=== PATIENT | male | born 1965 | race Caucasian/White ===

== ENCOUNTER 2020-12-21 08:44 | Outpatient (REF) | payer MEDICARE, SELFPAY ==
--- NOTE | ~2020-12-21 | MR_ITS ---
EXAMINATION: MR BRAIN WITHOUT AND WITH CONTRAST CLINICAL INFORMATION: 55-year-old with MS COMPARISON: 04/22/2019 MRI TECHNIQUE: Multiplanar, multisequence MRI of the brain was obtained before and after the intravenous administration of 6 mL Gadavist. FINDINGS: DWI imaging demonstrates no restricted diffusion. No abnormal intracranial enhancement, mass lesion, space-occupying process or mass effect. Small poorly marginated FLAIR signal hyperintensities are seen in the juxtaventricular white matter of both cerebral hemispheres, stable in appearance from previous study, with a stable small subcortical T2 hyperintensity near the left frontal convexity and mild patchy T2 hyperintensity along the inferior frontal horns which may reflect CSF capping. Minimal of faint, confluent T2 hyperintensity noted in the deep parieto-occipital white matter bilaterally is stable. A small T2 hyperintense focus on the left side of the genu of the corpus callosum is stable and there is diffuse corpus callosal volume loss with increased T2 signal at the anterior callosal septal interface, stable in appearance. Multiple tiny FLAIR signal hyperintensities in the body of corpus callosum on the left are stable. The ventricular system and subarachnoid spaces are consistent with moderate generalized diffuse brain parenchymal volume loss, stable in appearance, without hydrocephalus, with a cavum septum pellucidum and cavum vergae incidentally noted, unchanged in appearance. Gradient echo imaging demonstrates no evidence for hemorrhage or hemosiderin staining. Normal signal voids are noted in the visualized major intracranial vessels. The visualized orbital structures appear grossly unremarkable within the limitations of the study.. The paranasal sinuses are well aerated. MR/MR head/brain wo/w con IMPRESSION: 1. No significant change in previously noted supratentorial white matter lesions with no evidence for active demyelination/abnormal enhancement. 2. Generalized diffuse brain parenchymal volume loss and diffuse corpus callosal volume loss, stable in appearance, without hydrocephalus.
--- NOTE | ~2020-12-21 | MR_ITS ---
EXAMINATION: MR CERVICAL SPINE WITHOUT AND WITH CONTRAST CLINICAL INFORMATION: 55-year-old with MS. Follow-up study. COMPARISON: 06/09/2019 TECHNIQUE: MRI of the cervical spine was obtained using routine sequences with and without contrast. Intravenous contrast: Gadavist 6 mL. FINDINGS: Alignment: Normal. No change. Craniocervical Junction/C1-C2 Articulations:?Intact and aligned. Visualized Intracranial Structures: Within normal limits. Vertebral Bodies: Normal height. Bone Marrow: Within normal limits. Spinal Cord: Previously noted lesion in the dorsal aspect of the spinal cord at the C4-C5 level is again noted with no abnormal enhancement, largely stable in appearance from previous exam. There is subtle spinal cord volume loss at this level, unchanged. A tiny lesion in the dorsal aspect of the spinal cord without abnormal enhancement is noted at the level of the superior endplate of C4, unchanged. No new lesions are identified in the spinal cord, with the remainder of the cervical and visualized upper thoracic spinal cord demonstrated normal signal intensity with no abnormal enhancement. C2-C3: Disc space height is well maintained without disc herniation or spondylosis. There is minor facet arthrosis on the left, stable in appearance. C3-C4: Disc space height is well maintained. Small left paramedian disc protrusion, stable in appearance, without spinal stenosis or cord impingement. Mild uncinate process spurring on the right is stable with mild right-sided neural foraminal stenosis, unchanged. C4-C5: Disc space height is well maintained. There is uncovertebral spurring again noted, right more the left, with moderate right-sided neural foraminal stenosis, stable in appearance. C5-C6: Disc space height is well maintained. Small central to left paramedian disc protrusion noted without spinal cord impingement, stable in appearance. Uncovertebral joint arthrosis again noted bilaterally with mild facet arthrosis on the left, stable in appearance, and mild ligamentum flavum thickening, unchanged. There is mild left-sided and [id number] right-sided neural foraminal stenosis, stable in appearance. Mild central canal narrowing asymmetric to the left is stable. C6-C7: Disc space height is well maintained. Mild broad-based central disc protrusion with mild flattening of the dural sac without cord impingement is stable with no significant spinal canal stenosis. There is mild facet spurring bilaterally and uncovertebral spurring with mild foraminal narrowing bilaterally, stable in appearance. C7-T1: Disc space height is well maintained, stable in appearance, without disc herniation. Mwce-az-qeyuylek facet arthrosis is noted, left more than right, unchanged in appearance, with mild left-sided neural foraminal stenosis, unchanged. The visualized paravertebral soft tissues are within normal limits. MR/MR cervical spine wo/w con IMPRESSION: 1. Stable dorsal spinal cord lesions at the C4-C5 level as described above with no definite abnormal enhancement, unchanged in appearance. Mild degree of focal spinal cord volume loss at this level is stable. 2. No definite new lesions are identified. 3. Stable multilevel disc protrusions, uncovertebral and facet arthrosis with predominately [id number] degrees of multilevel neural foraminal compromise, largely unchanged.
== END 2020-12-21 08:45 | disposition home or self-care (01) ==
LOC: HO.MRI 08:44
PROVIDERS: PCP Internal Medicine; Visit Provider Psychiatry & Neurology Neurology
DX: G35 Multiple sclerosis (principal)
CPT/HCPCS: 70553; 72156; A9585

== ENCOUNTER 2021-07-04 15:24 | Outpatient (REF) | payer MEDICARE, SELFPAY ==
[2021-07-04 16:51] LABS: MANUAL DIFF FLAG NO
[2021-07-04 16:54] LABS: Basophils Percent Auto 0.3 % (0-2); Eosinophils Absolute Auto 0.1 X10*3/uL (0.0-0.4); Eosinophils Percent Auto 0.9 % (0-4); Hematocrit 40.8 % (42-52); Hemoglobin 13.7 g/dl (14.0-18.0); Imm Gran Abs Auto 0.09 X10*3/uL (0.00-0.03); Imm Gran Pct Auto 0.8 % (0.0-0.4); Lymphocytes Absolute Auto 2.2 X10*3/uL (1.2-4.9); Lymphocytes Percent Auto 18.4 % (20-40); Mean Corpuscular HGB Conc 33.6 g/dl (31.0-36.0); Mean Corpuscular Hemoglobin 29.5 pg (27.0-33.0); Mean Corpuscular Volume 87.9 fL (80-98); Mean Platelet Volume 9.1 fL (9.4-12.4); Monocytes Absolute Auto 0.7 X10*3/uL (0.1-1.2); Monocytes Percent Auto 6.2 % (2-11); NRBC Pct Auto 0.3 /100WBC (0.0-0.2); Neutrophils Absolute Auto 8.8 X10*3/uL (2.0-8.3); Neutrophils Percent Auto 73.4 % (45-73); Platelet Count 211 X10*3/uL (160-400); Red Blood Count 4.64 X10*6/uL (4.60-5.80); Red Cell Distribution Width 13.2 % (11.0-16.0)
[2021-07-04 17:17] LABS: Alanine Aminotransferase 23 U/L (0-40); Albumin Level 4.5 g/dL (3.5-5.0); Alkaline Phosphatase 87 U/L (39-117); Aspartate Amino Transferase 16 U/L (5-37); Bilirubin Direct < 0.2 mg/dL (0.0-0.5); Bilirubin Total 0.6 mg/dL (0.0-1.0); Total Protein 6.9 g/dL (6.5-8.0)
[2021-07-11 19:56] LABS: JCV Antibody POSITIVE; JCV Index Value 1.53
== END 2021-07-04 15:25 | disposition home or self-care (01) ==
LOC: HO.LAB 15:24
PROVIDERS: PCP Internal Medicine; Visit Provider Psychiatry & Neurology Neurology
DX: G35 Multiple sclerosis (principal)
CPT/HCPCS: 36415; 80076; 85025; 86711

== ENCOUNTER 2022-01-29 10:57 | Outpatient (REF) | payer OTHER, SELFPAY ==
[2022-01-29 11:09] LABS: MANUAL DIFF FLAG NO
[2022-01-29 11:49] LABS: Basophils Absolute Auto 0.1 X10*3/uL (0.0-0.2); Basophils Percent Auto 0.6 % (0-2); Eosinophils Absolute Auto 0.4 X10*3/uL (0.0-0.4); Eosinophils Percent Auto 3.1 % (0-4); Hematocrit 46.1 % (42.0-52.0); Hemoglobin 15.3 g/dl (14.0-18.0); Imm Gran Pct Auto 0.9 % (0.0-0.4); Lymphocytes Absolute Auto 3.5 X10*3/uL (1.2-4.9); Lymphocytes Percent Auto 31.4 % (20-40); Mean Corpuscular HGB Conc 33.2 g/dl (31.0-36.0); Mean Corpuscular Hemoglobin 28.9 pg (27.0-33.0); Mean Platelet Volume 8.9 fL (9.4-12.4); Monocytes Absolute Auto 0.9 X10*3/uL (0.1-1.2); Monocytes Percent Auto 8.3 % (2-11); NRBC Pct Auto 0.6 /100WBC (0.0-0.2); Neutrophils Absolute Auto 6.2 x10*3/uL (2.0-8.3); Neutrophils Percent Auto 55.7 % (45-73); Platelet Count 275 X10*3/uL (160-400); Red Cell Distribution Width 14.8 % (11.0-16.0); White Blood Count 11.2 X10*3/uL (4.8-10.8)
[2022-02-06 01:47] LABS: JCV Antibody POSITIVE; JCV Index Value 1.39
== END 2022-01-29 10:58 | disposition home or self-care (01) ==
LOC: HO.LAB 10:57
PROVIDERS: PCP Internal Medicine; Visit Provider Psychiatry & Neurology Neurology
DX: G35 Multiple sclerosis (principal)
CPT/HCPCS: 36415; 85025; 86711

== ENCOUNTER 2022-08-15 13:12 | Outpatient (REF) | payer OTHER, SELFPAY ==
--- NOTE | ~2022-08-15 | MR_ITS ---
EXAMINATION: MRI BRAIN WITHOUT AND WITH CONTRAST MRI CERVICAL SPINE WITHOUT AND WITH CONTRAST CLINICAL INFORMATION: Surveillance. History of multiple sclerosis. COMPARISON: MRI brain and cervical spine 12/21/2020. TECHNIQUE: Multiplanar MR imaging of the brain and cervical spine was performed without and with contrast. FINDINGS: Brain: There are scattered nonspecific foci of T2 FLAIR signal hyperintensity primarily involving the supratentorial white matter with a predilection for the callososeptal interface and juxtacortical white matter consistent with the patient's clinical history of multiple sclerosis. No clear evidence of new or worsening white matter disease when compared to most recent prior examination from 12/21/2020. Postcontrast images reveal no abnormal intraparenchymal enhancement. There is no intracranial mass effect or midline shift. No abnormal extra-axial collection. Lateral and third ventricles are proportionate to the subarachnoid spaces. No hydrocephalus. Midline structures including the cervicomedullary junction are normal. No acute bone marrow signal changes. There is no acute territorial infarct. No pathological magnetic susceptibility artifact. Intracranial vascular flow voids are maintained. There is a trace right mastoid tip effusion. Moderate to severe paranasal sinus disease primarily affecting the ethmoid air cells and maxillary sinuses. Globes and orbits are symmetric. Cervical spine: Patient motion degrades image quality therefore this component examination is limited. There is an intramedullary lesion involving the central to the dorsal cord at the level of C4-C5 there is better depicted on prior imaging. No clear evidence of new or worsening white matter disease. Postcontrast images reveal no abnormal intramedullary enhancement to suggest active demyelination at the time of imaging. Alignment is normal. Vertebral heights are preserved. No acute bone marrow signal changes. There is disc desiccation at multiple levels without substantial loss of intervertebral disc height. There are slightly bulging discs causing minimal indentation of the thecal sac. No canal compromise or cord compression. Uncovertebral joint spurring and conjunction with facet degenerative change causes mild right neuroforaminal encroachment at C4-C5 and mild bilateral neuroforaminal encroachment at C5-C6. Visualized soft tissues of the neck are normal. Vascular flow voids are maintained. MR/MR cervical spine wo/w con IMPRESSION: Stable chronic white matter disease involving the brain and cervical spinal cord consistent with the patient's clinical history of multiple sclerosis. No new or worsening white matter disease and no abnormal enhancement to suggest active demyelination. There is mild multilevel degenerative spondylosis of the cervical spine. No canal compromise or cord compression. Uncovertebral joint spurring and facet degenerative change causes mild right neuroforaminal encroachment at C4-C5 and mild bilateral neuroforaminal encroachment at C5-C6.
== END 2022-08-15 13:13 | disposition home or self-care (01) ==
LOC: HO.MRI 13:12
PROVIDERS: PCP Internal Medicine; Visit Provider Psychiatry & Neurology Neurology
DX: G35 Multiple sclerosis (principal)
CPT/HCPCS: 70553; 72156; A9585

== ENCOUNTER 2022-09-10 12:36 | Outpatient (REF) | payer OTHER, SELFPAY ==
[2022-09-10 12:53] LABS: MANUAL DIFF FLAG NO
[2022-09-10 13:38] LABS: Basophils Absolute Auto 0.1 X10*3/uL (0.0-0.2); Basophils Percent Auto 0.6 % (0-2); Eosinophils Absolute Auto 0.1 X10*3/uL (0.0-0.4); Eosinophils Percent Auto 0.8 % (0-4); Hematocrit 49.3 % (42.0-52.0); Hemoglobin 16.8 g/dl (14.0-18.0); Imm Gran Abs Auto 0.05 X10*3/uL (0.00-0.03); Imm Gran Pct Auto 0.5 % (0.0-0.4); Lymphocytes Absolute Auto 2.3 X10*3/uL (1.2-4.9); Lymphocytes Percent Auto 22.9 % (20-40); Mean Corpuscular HGB Conc 34.1 g/dl (31.0-36.0); Mean Corpuscular Hemoglobin 29.2 pg (27.0-33.0); Mean Corpuscular Volume 85.6 fL (80.0-98.0); Mean Platelet Volume 9.1 fL (9.4-12.4); Monocytes Absolute Auto 0.6 X10*3/uL (0.1-1.2); Monocytes Percent Auto 5.4 % (2-11); Neutrophils Absolute Auto 7.2 x10*3/uL (2.0-8.3); Neutrophils Percent Auto 69.8 % (45-73); Platelet Count 249 X10*3/uL (160-400); Red Blood Count 5.76 X10*6/uL (4.60-5.80); White Blood Count 10.2 X10*3/uL (4.8-10.8)
[2022-09-17 20:27] LABS: JCV Antibody POSITIVE; JCV Index Value 3.13
== END 2022-09-10 12:37 | disposition home or self-care (01) ==
LOC: HO.LAB 12:36
PROVIDERS: Visit Provider Psychiatry & Neurology Neurology
DX: G35 Multiple sclerosis (principal)
CPT/HCPCS: 36415; 85025; 86711

== ENCOUNTER 2023-03-11 12:12 | Outpatient (REF) | payer OTHER, SELFPAY ==
[2023-03-11 12:36] LABS: MANUAL DIFF FLAG NO
[2023-03-11 12:50] LABS: Basophils Absolute Auto 0.1 X10*3/uL (0.0-0.2); Basophils Percent Auto 0.7 % (0-2); Eosinophils Absolute Auto 0.2 X10*3/uL (0.0-0.4); Eosinophils Percent Auto 2.3 % (0-4); Hematocrit 48.1 % (42.0-52.0); Imm Gran Abs Auto 0.07 X10*3/uL (0.00-0.03); Imm Gran Pct Auto 0.7 % (0.0-0.4); Lymphocytes Absolute Auto 2.9 X10*3/uL (1.2-4.9); Lymphocytes Percent Auto 31.1 % (20-40); Mean Corpuscular HGB Conc 33.3 g/dl (31.0-36.0); Mean Corpuscular Hemoglobin 28.7 pg (27.0-33.0); Mean Corpuscular Volume 86.2 fL (80.0-98.0); Mean Platelet Volume 8.7 fL (9.4-12.4); Monocytes Absolute Auto 0.8 X10*3/uL (0.1-1.2); Monocytes Percent Auto 8.1 % (2-11); NRBC Pct Auto 0.7 /100WBC (0.0-0.2); Neutrophils Absolute Auto 5.4 x10*3/uL (2.0-8.3); Neutrophils Percent Auto 57.1 % (45-73); Platelet Count 273 X10*3/uL (160-400); Red Blood Count 5.58 X10*6/uL (4.60-5.80); Red Cell Distribution Width 13.5 % (11.0-16.0); White Blood Count 9.4 X10*3/uL (4.8-10.8)
[2023-03-11 13:21] LABS: Alanine Aminotransferase 24 U/L (0-40); Albumin Level 4.4 g/dL (3.5-5.0); Alkaline Phosphatase 112 U/L (39-117); Aspartate Amino Transferase 22 U/L (5-37); Bilirubin Direct 0.1 mg/dL (0.0-0.5); Bilirubin Total 0.3 mg/dL (0.0-1.0); Total Protein 6.8 g/dL (6.5-8.0)
[2023-03-16 00:34] LABS: JCV Antibody POSITIVE; JCV Index Value 2.84
== END 2023-03-11 12:13 | disposition home or self-care (01) ==
LOC: HO.LAB 12:12
PROVIDERS: PCP Internal Medicine; Visit Provider Psychiatry & Neurology Neurology
DX: G35 Multiple sclerosis (principal)
CPT/HCPCS: 36415; 80076; 85025; 86711

== ENCOUNTER 2023-10-11 11:06 | Outpatient (REF) | payer OTHER, SELFPAY ==
--- NOTE | ~2023-10-11 | MR_ITS ---
EXAMINATION: MR BRAIN WITH AND WITHOUT CONTRAST CLINICAL INFORMATION: MS COMPARISON: MRI brain 08/15/2022 TECHNIQUE: MRI of the brain was obtained using routine sequences before and following administration of intravenous contrast. A total of 6 mL of Gadavist was administered intravenously. FINDINGS: Stable mild burden of demyelinating disease in the supratentorial compartment. Corresponding T1 hypointense signal compatible with chronic plaques. No new lesions identified. No infratentorial lesions. No acute infarct. The GRE sequence is without susceptibility artifact to suggest acute or chronic blood products. No extra-axial fluid collection. Stable moderate global cerebral volume loss and diffuse thinning of the corpus callosum. No abnormal intraparenchymal or leptomeningeal enhancement. No significant mass effect or herniation pattern. The intracranial dural venous sinus and arterial flow voids are preserved. The orbits are grossly unremarkable. Decreased pansinus mucosal disease, which is most pronounced and moderate in the frontal sinuses with patchy involvement of the ethmoid air cells. Trace right mastoid tip effusion. Small right nasopharyngeal retention cyst. Normal marrow signal. MR/MR head/brain wo/w con IMPRESSION: 1. Stable minimal burden of demyelinating disease without new lesions identified. No enhancement to suggest active demyelination. 2. Decreased pansinus mucosal disease, which is most pronounced and moderate in the frontal sinuses with patchy involvement of the ethmoid air cells.
[2023-10-11] MEDS: gadobutroL 7.5 ML VIAL IVPUSH (12:10)
== END 2023-10-11 11:07 | disposition home or self-care (01) ==
LOC: HO.MRI 11:06
PROVIDERS: PCP Internal Medicine; Visit Provider Psychiatry & Neurology Neurology
DX: G35 Multiple sclerosis (principal)
CPT/HCPCS: 70553; A9585

== ENCOUNTER 2023-11-05 11:18 | Outpatient (REF) | payer MEDICARE, SELFPAY ==
[2023-11-05 11:36] LABS: MANUAL DIFF FLAG NO
[2023-11-05 11:40] LABS: Basophils Absolute Auto 0.1 X10*3/uL (0.0-0.2); Basophils Percent Auto 0.5 % (0-2); Eosinophils Absolute Auto 0.2 X10*3/uL (0.0-0.4); Eosinophils Percent Auto 2.2 % (0-4); Hematocrit 45.3 % (42.0-52.0); Hemoglobin 14.9 g/dl (14.0-18.0); Imm Gran Abs Auto 0.04 X10*3/uL (0.00-0.03); Imm Gran Pct Auto 0.4 % (0.0-0.4); Lymphocytes Absolute Auto 2.6 X10*3/uL (1.2-4.9); Lymphocytes Percent Auto 27.4 % (20-40); Mean Corpuscular HGB Conc 32.9 g/dl (31.0-36.0); Mean Corpuscular Hemoglobin 28.3 pg (27.0-33.0); Mean Platelet Volume 8.6 fL (9.4-12.4); Monocytes Percent Auto 10.5 % (2-11); NRBC Pct Auto 0.3 /100WBC (0.0-0.2); Neutrophils Absolute Auto 5.6 x10*3/uL (2.0-8.3); Platelet Count 217 X10*3/uL (160-400); Red Blood Count 5.27 X10*6/uL (4.60-5.80); Red Cell Distribution Width 13.8 % (11.0-16.0); White Blood Count 9.5 X10*3/uL (4.8-10.8)
[2023-11-05 13:42] LABS: Alanine Aminotransferase 22 U/L (0-40); Albumin Level 4.2 g/dL (3.5-5.0); Alkaline Phosphatase 91 U/L (39-117); Aspartate Amino Transferase 23 U/L (5-37); Bilirubin Direct 0.1 mg/dL (0.0-0.5); Bilirubin Total 0.3 mg/dL (0.0-1.0); Total Protein 6.7 g/dL (6.5-8.0)
[2023-11-14 22:58] LABS: JCV Antibody POSITIVE; JCV Index Value 2.34
== END 2023-11-05 11:19 | disposition home or self-care (01) ==
LOC: HO.LAB 11:18
PROVIDERS: PCP Internal Medicine; Visit Provider Psychiatry & Neurology Neurology
DX: G35 Multiple sclerosis (principal)
CPT/HCPCS: 36415; 80076; 85025; 86711

== ENCOUNTER 2024-05-28 12:41 | Outpatient (REF) | payer MEDICARE, SELFPAY ==
[2024-05-28 12:52] LABS: MANUAL DIFF FLAG NO
[2024-05-28 13:08] LABS: Basophils Absolute Auto 0.1 X10*3/uL (0.0-0.2); Basophils Percent Auto 0.6 % (0-2); Eosinophils Absolute Auto 0.1 X10*3/uL (0.0-0.4); Eosinophils Percent Auto 1.2 % (0-4); Hematocrit 43.7 % (42.0-52.0); Hemoglobin 14.4 g/dl (14.0-18.0); Imm Gran Abs Auto 0.06 X10*3/uL (0.00-0.03); Imm Gran Pct Auto 0.7 % (0.0-0.4); Mean Corpuscular Hemoglobin 28.2 pg (27.0-33.0); Mean Corpuscular Volume 85.5 fL (80.0-98.0); Monocytes Absolute Auto 0.5 X10*3/uL (0.1-1.2); NRBC Pct Auto 0.4 /100WBC (0.0-0.2); Neutrophils Absolute Auto 6.3 x10*3/uL (2.0-8.3); Neutrophils Percent Auto 69.5 % (45-73); Platelet Count 202 X10*3/uL (160-400); Red Blood Count 5.11 X10*6/uL (4.60-5.80); Red Cell Distribution Width 13.2 % (11.0-16.0)
[2024-05-28 13:38] LABS: Alanine Aminotransferase 25 U/L (0-40); Albumin Level 4.4 g/dL (3.5-5.0); Alkaline Phosphatase 86 U/L (39-117); Aspartate Amino Transferase 19 U/L (5-37); Bilirubin Direct 0.1 mg/dL (0.0-0.5); Bilirubin Total 0.4 mg/dL (0.0-1.0)
[2024-06-03 23:28] LABS: JCV Antibody POSITIVE; JCV Index Value 1.72
== END 2024-05-28 12:42 | disposition home or self-care (01) ==
LOC: HO.LAB 12:41
PROVIDERS: PCP Internal Medicine; Visit Provider Registered Nurse
DX: G35 Multiple sclerosis (principal)
CPT/HCPCS: 36415; 80076; 85025; 86711

== ENCOUNTER 2025-03-24 12:28 | Outpatient (REF) | payer OTHER, SELFPAY ==
[2025-03-28 22:19] LABS: JCV Antibody POSITIVE; JCV Index Value 2.81 index
== END 2025-03-24 12:29 | disposition home or self-care (01) ==
LOC: HO.LAB 12:28
PROVIDERS: PCP Internal Medicine; Visit Provider Psychiatry & Neurology Neurology
DX: G35 Multiple sclerosis (principal)
CPT/HCPCS: 36415; 86711

== ENCOUNTER 2025-09-14 13:37 | Outpatient (REF) | payer OTHER, SELFPAY ==
[2025-09-16 22:37] LABS: JCV Index Value 1.57 index
== END 2025-09-14 13:38 | disposition home or self-care (01) ==
LOC: HO.LAB 13:37
PROVIDERS: PCP Internal Medicine; Referring Provider Internal Medicine; Visit Provider Registered Nurse
DX: G35.D Multiple sclerosis, unspecified (principal); Z01.84 Encounter for antibody response examination; Z79.620 Long term (current) use of immunosuppressive biologic
CPT/HCPCS: 36415; 86711; 99212

== ENCOUNTER 2025-09-14 13:37 | Outpatient (AMB) | payer OTHER, SELFPAY ==
--- NOTE | 2025-09-14 13:43 | A.OFFVIS_ITS ---
Intake Visit Reasons: 6m MS Allergies No Known Allergies Allergy (Verified 09/14/25 13:47) Medication List - Last Reconciled 09/14/25 by Coreen Gabriel CNP cariprazine (Vraylar) 4.5 mg PO DAILY cholecalciferol (vitamin D3) 50 mcg PO QAM eszopiclone 3 mg PO BEDTIME PRN lamotrigine 200 mg PO DAILY natalizumab (Tysabri) 300 mg IV Q6W olanzapine 10 mg PO BEDTIME olanzapine 15 mg PO BEDTIME pentoxifylline ER 400 mg PO BID risperidone 2 mg PO QPM HPI Comments Details: He was doing okay. Stable MS treated with Tysabri infusions every 6 weeks at [facility]. No new MS symptoms. Numbness to L hand and R fingers was about the same. No new or increased weakness. Balance was okay. No falls. Has some urinary urgency. Sleep was up and down. Mood was so-so. Gets a little exercise. Previously had some trouble holding on to things with both hands, R> L. Numb and tingling for about since 2018 with negative EMGs in the past. His feet were tingling and numb before his hands, but that went away after a few months. No weakness, neck or back pain, no history of brain injury, no tremor. Balance is ok. His JCV titers have been high so the Tysabri was reduced to q6 wkly from 09/19/21. [facility] Medical History (Updated 09/14/25 @ 13:47 by Coreen Gabriel CNP) Bipolar disorder Review of Systems Const Denies chills, Denies daytime sleepiness, Denies difficulty sleeping, Denies fatigue, Denies fever(s), Denies frequent falls, Denies headache(s), Denies increased appetite, Denies poor appetite, Denies snoring, Denies weakness, Denies weight gain and Denies weight loss Eyes Denies loss of vision ENT Denies vertigo, Denies dizziness, Denies headache(s) and Denies neck pain Card Denies chest pain at rest, Denies chest pain with activity, Denies syncope, Denies leg edema, Denies palpitations, Denies dyspnea and Denies dyspnea on exertion Resp Denies cough, Denies dyspnea, Denies dyspnea on exertion and Denies snoring GI Denies abdominal pain, Denies constipation, Denies heartburn, Denies diarrhea and Denies nausea Denies urinary frequency, Denies urinary incontinence and Denies urinary urgency Musc Denies abnormal gait, Denies back pain, Denies myalgias, Denies arthralgias, Denies neck pain, Reports numbness and Reports tingling Neuro Denies abnormal gait, Denies vertigo, Denies dizziness, Denies syncope, Denies frequent falls, Denies headache(s), Denies lack of coordination, Denies loss of vision, Denies memory loss, Reports numbness, Denies Other visual disturbances, Denies restless legs, Denies seizure-like activity, Reports tingling, Denies paresthesias, Denies tremor(s) and Denies weakness Psych Denies anxiety, Reports depression, Denies auditory hallucinations, Denies memory loss and Denies visual hallucinations Endo Denies fatigue and Denies palpitations Physical Exam Const Other: General Appearance:? normal, in no acute distress. Heart:? S1, S2 normal, no murmurs. Lungs:? clear anteriorly and posteriorly. Musculoskeletal:? normal. Extremities:? no edema. Psych:? alert, oriented, cognitive function intact, cooperative with exam. Neuro Other: Abnormal Neurological Findings:?DTRs 1+ in UE, 3+ in LE, plantars are equivocal. Mental Status: alert and oriented X 3. Normal attention, orientation, memory, and affect. Cranial Nerves: Pupils are equal, round, and reactive to light. External ocular muscles are intact. Visual ga are full, no ptosis. Face is symmetrical, no facial weakness or droop. Facial sensations are normal. Tongue protrudes in midline. Palate elevates symmetrically. Shoulder shrugging is normal Motor Examination: As above. Sensory Exam: Normal light touch, temperature, pinprick, vibration, and joint- position sensations. Rhomberg sign is absent. Coordination: No ataxia. No titubation. Gait Exam: Within normal limits. Cerebellar Signs: Irypos-og-utir is okay. Extrapyramidal System: No tremor, rigidity with normal facial expressions. No bradykinesia. No bradyphrenia. Normal arm swing and posture. No propulsion or retropulsion. Speech: Normal. Results Reviewed Results Reviewed: Laboratory Tests 05/28/24 03/24/25 12:50 12:49 RAMONITA Virus Antibody POSITIVE A POSITIVE A RAMONITA Virus Ab Index GARRETT 1.72 H 2.81 H RAMONITA Virus Ab Inhib Assay TNP TNP 10/11/23 MRI brain: Stable minimal burden of demyelinating disease without new lesions identified since last MRI Jul 2022. No enhancement to suggest active demyelination. 10/23/21 NCV/EMG UE Normal motor and sensory nerve conduction velocities in the upper extremities. Normal EMG in the left C5-T1 innervated muscles. No significant changes since last NCV/EMG done in 2019. JCV 11/05/2023 2.34, 03/26/23 2.84, 08/2022 3.14. Assessment & Plan Assessment & Plan (1) Multiple sclerosis: Code(s): G35 - Multiple sclerosis Category: Medical Plan: Continue Tysabri 300mg/15mL IV infusion every 6 weeks. JCV labs ordered. Orders: Orders JCV Ab w/Indx rflx Inhibition Today G35 - Multiple sclerosis Coding Level of Care Code Est Pt Level 4 (39364) Diagnoses Multiple sclerosis G35
== END 2025-09-14 13:57 | disposition home or self-care (01) ==
LOC: HO.HSM 13:37
PROVIDERS: PCP Internal Medicine; Referring Provider Internal Medicine; Visit Provider Registered Nurse
DX: G35.D Multiple sclerosis, unspecified (principal)
CPT/HCPCS: 99214